=== PATIENT | female | born 1950 | race Hispanic/Latino ===

== ENCOUNTER 2019-09-10 12:43 | Emergency (ER) | payer OTHER ==
[2019-09-10] MEDS ORDERED: Albuterol 200 PUFF (6.7GM INHALER) ONE (13:30)
[2019-09-10] MEDS ORDERED: Ibuprofen 200 MG TAB ONE (13:31)
--- NOTE | 2019-09-10 13:48 | RAD ---
XR Chest 1 View Portable HISTORY: Chest pain, tested positive for COVID 2 weeks ago FINDINGS: The heart size is borderline. The aorta is tortuous. The lungs are expanded with patchy opacities whi ch could be seen in viral pneumonias.
== END 2019-09-10 16:03 | disposition home or self-care (01) ==
LOC: ERS 12:43
DX: U07.1 COVID-19 (principal); J12.89 Other viral pneumonia; E78.5 Hyperlipidemia, unspecified; I10 Essential (primary) hypertension
CPT/HCPCS: 71045; 93005